=== PATIENT | male | born 1960 | race Caucasian/White ===

== ENCOUNTER 2021-11-07 00:23 | Emergency (ER) | payer MEDICAID ==
[~2021-11-07] VITALS: Ht 162.6 cm; Wt 63.6 kg
[2021-11-07 00:45] VITALS: BP 175/115
== END 2021-11-07 02:11 | disposition left against medical advice (07) ==
LOC: ER 00:24
DX: R03.0 Elevated blood-pressure reading, without diagnosis of hypertension (principal); Z53.21 Procedure and treatment not carried out due to patient leaving prior to being seen by health care provider